=== PATIENT | female | born 1945 | race Caucasian/White ===

== ENCOUNTER 2019-01-26 17:02 | Emergency (ER) | payer MEDICARE, BC ==
[2019-01-26 17:11] VITALS: BP 153/75; PULSE 75
[2019-01-26] MEDS ORDERED: Sodium Chloride 0.9% 10 ML Syringe FLUSH PRN (17:31)
[2019-01-26] MEDS ORDERED: Sodium Chloride 0.9% 1,000 ML IV SCH (17:45)
--- NOTE | 2019-01-26 17:55 | EDM.PDOC ---
ED HPI GENERAL MEDICAL PROBLEM - General Chief Complaint: Syncope Stated Complaint: [facility] Time Seen by Provider: 01/26/19 17:11 Source of Information: Reports: Patient, EMS, Family History Limitations: Reports: No Limitations - History of Present Illness INITIAL COMMENTS - FREE TEXT/NARRATIVE: The patient presents by [facility] for syncope. She was at Thanksgiving dinner and she ate good and had 2 small glasses of wine. She helped clean off the table and then sat down on a couch. She started to not feel well and got hot. She took off her sweater and then was getting up to lay down and she passed out for about 30 seconds. She has no complaints now such as headache, fever, chills, cough, congestion, runny nose, chest pain, shortness of breath, abdominal pain, nausea, vomiting, diarrhea and dysuria. She has no cardiac history. She was recently diagnosed with hypertension in the past year and was put on a low dose medication. She says this has happened one time before when she was at a rode. It was over a hundred at the spelter though. Onset: Sudden Duration: Minutes: Severity: Moderate Improves with: Reports: None Worsens with: Reports: None Associated Symptoms: Reports: No Other Symptoms - Related Data Allergies Allergy/AdvReac Type Severity Reaction Status Date / Time No Known Allergies Allergy Verified 01/26/19 17:07 Home Meds: Home Meds B2/Vits A,C,E/Lut/Zeaxanth/Min [Icaps] 1 tab PO DAILY 01/17/14 [History] Levothyroxine 25 mcg PO DAILY 01/17/14 [History] Enalapril/Hydrochlorothiazide [Enalapril-HCTZ 10-25 MG] 1 tab PO DAILY 01/26/19 [History] Red Yeast Rice 600 mg PO DAILY 01/26/19 [History] Past Medical History HEENT History: Reports: Cataract Cardiovascular History: Reports: Hypertension Musculoskeletal History: Reports: Arthritis Oncologic (Cancer) History: Reports: Breast - Past Surgical History GI Surgical History: Reports: Appendectomy Other Female Surgeries/Procedures: mastectomy Social & Family History - Family History Family Medical History: Noncontributory - Tobacco Use Smoking Status *Q: Never Smoker ED ROS GENERAL - Review of Systems Review Of Systems: See Below Constitutional: Reports: No Symptoms HEENT: Reports: No Symptoms Respiratory: Reports: No Symptoms Cardiovascular: Reports: Syncope Endocrine: Reports: No Symptoms GI/Abdominal: Reports: No Symptoms : Reports: No Symptoms Musculoskeletal: Reports: No Symptoms Skin: Reports: No Symptoms Neurological: Reports: No Symptoms - Physical Exam Exam: See Below Exam Limited By: No Limitations General Appearance: Alert, No Apparent Distress Ears: Normal External Exam Nose: Normal Inspection Head Exam: Atraumatic, Normocephalic Neck: Normal Inspection Respiratory/Chest: No Respiratory Distress, Lungs Clear, Normal Breath Sounds Cardiovascular: Regular Rate, Rhythm, No Edema, No Murmur GI/Abdominal: Soft, Non-Tender, No Organomegaly, No Mass Neuro Exam (Abbreviated): Alert, Oriented, No Motor/Sensory Deficits Course - Vital Signs Last Recorded V/S: Last Vital Signs Temp 97.5 F 01/26/19 17:09 Pulse 75 01/26/19 17:09 Resp 16 01/26/19 17:09 BP 153/75 H 01/26/19 17:09 Pulse Ox 100 01/26/19 17:09 - Orders/Labs/Meds Orders: Active Orders 24 hr Category Date Time Status Cardiac Monitoring [RC] . DIRECTED Care 01/26/19 17:31 Active EKG Documentation Completion [RC] STAT Care 01/26/19 17:32 Active Holter Monitor 48 Hours [RC] .PRN Care 01/26/19 18:28 Ordered Peripheral IV Care [RC] . DIRECTED Care 01/26/19 17:32 Active Sodium Chloride 0.9% [Normal Saline] 1,000 ml Med 01/26/19 17:45 Active IV ASDIRECTED Sodium Chloride 0.9% [Saline Flush] Med 01/26/19 17:31 Active 10 ml FLUSH ASDIRECTED PRN Peripheral IV Insertion Adult [OM.PC] Stat Oth 01/26/19 17:31 Ordered Medication Orders Sodium Chloride (Normal Saline) 1,000 mls @ 125 mls/hr IV ASDIRECTED ARAVIND Last Admin: 01/26/19 17:39 Dose: 125 mls/hr Sodium Chloride (Saline Flush) 10 ml FLUSH ASDIRECTED PRN PRN Reason: Keep Vein Open Last Admin: 01/26/19 17:40 Dose: 10 ml Labs: Laboratory Tests 01/26/19 01/26/19 Range/Units 17:25 17:25 WBC 10.67 H (3.98-10.04) K/mm3 RBC 3.58 L (3.98-5.22) M/mm3 Hgb 11.3 D (11.2-15.7) gm/dl Hct 33.5 L (34.1-44.9) % MCV 93.6 (79.4-94.8) fl MCH 31.6 (25.6-32.2) pg MCHC 33.7 (32.2-35.5) g/dl RDW Std Deviation 42.3 (36.4-46.3) fL Plt Count 348 (182-369) K/mm3 MPV 9.4 (9.4-12.3) fl Neut % (Auto) 80.5 H (34.0-71.1) % Lymph % (Auto) 11.0 L (19.3-51.7) % [place] % (Auto) 6.3 (4.7-12.5) % Eos % (Auto) 1.3 (0.7-5.8) Baso % (Auto) 0.7 (0.1-1.2) % Neut # (Auto) 8.60 H (1.56-6.13) K/mm3 Lymph # (Auto) 1.17 L (1.18-3.74) K/mm3 [place] # (Auto) 0.67 H (0.24-0.36) K/mm3 Eos # (Auto) 0.14 (0.04-0.36) K/mm3 Baso # (Auto) 0.07 (0.01-0.08) K/mm3 Manual Slide Review Normal smear Sodium 131 L (136-145) mEq/L Potassium 3.9 (3.5-5.1) mEq/L Chloride 95 L (98-107) mEq/L Carbon Dioxide 27 (21-32) mEq/L Anion Gap 12.9 (5-15) BUN 28 H (7-18) mg/dL Creatinine 1.4 H (0.55-1.02) mg/dL Est Cr Clr Drug Dosing 32.50 mL/min Estimated GFR (MDRD) 37 (>60) mL/min BUN/Creatinine Ratio 20.0 H (14-18) Glucose 103 (83-115) mg/dL Calcium 9.8 (8.5-10.1) mg/dL Total Bilirubin 0.3 (0.2-1.0) mg/dL AST 13 L (15-37) U/L ALT 26 (14-59) U/L Alkaline Phosphatase 83 (46-116) U/L Troponin I < 0.017 (0.00-0.056) ng/mL Total Protein 7.3 (6.4-8.2) g/dl Albumin 4.0 (3.4-5.0) g/dl Globulin 3.3 gm/dL Albumin/Globulin Ratio 1.2 (1-2) Meds: Medications Generic Name Dose Route Start Last Admin Trade Name Freq PRN Reason Stop Dose Admin Sodium Chloride 1,000 mls @ 125 mls/hr 01/26/19 17:45 01/26/19 17:39 Normal Saline IV 125 mls/hr ASDIRECTED ARAVIND Administration Sodium Chloride 10 ml 01/26/19 17:31 01/26/19 17:40 Saline Flush FLUSH 10 ml ASDIRECTED PRN Administration Keep Vein Open - Re-Assessments/Exams Free Text/Narrative Re-Assessment/Exam: 01/26/19 17:56 I ordered an IV NS at 125mL/hr, labs and an EKG. 01/26/19 18:29 Her EKG shows a NSR with no acute changes. Her WBC was slightly elevated at 10.67. Her Na was low at 131. Her creatinine was elevated at 1.4. Her last creatinine was 1.2. Her troponin is negative. She still feels good. I will have her wear a holter monitor for the next 24 hours. Departure - Departure Time of Disposition: 18:35 Disposition: Home, Self-Care 01 Condition: Good Clinical Impression: Renal insufficiency Syncope Qualifiers: Syncope type: unspecified Qualified Code(s): R55 - Syncope and collapse - Discharge Information *PRESCRIPTION DRUG MONITORING PROGRAM REVIEWED*: No *COPY OF PRESCRIPTION DRUG MONITORING REPORT IN PATIENT GAMALIEL: No Referrals: Sujatha Connelly CASTER OPERATOR [Primary Care Provider] - 1 Week Forms: ED Department Discharge Additional Instructions: Drink plenty of fluids. Take your medication as prescribed. Wear the holter monitor for the next 48 hours. Please return if you are worse. Follow up with Sujatha Connelly within a week. - My Orders Last 24 Hours: My Active Orders 01/26/19 17:31 Cardiac Monitoring [RC] . DIRECTED Sodium Chloride 0.9% [Saline Flush] 10 ml FLUSH ASDIRECTED PRN Peripheral IV Insertion Adult [OM.PC] Stat 01/26/19 17:32 EKG Documentation Completion [RC] STAT Peripheral IV Care [RC] . DIRECTED 01/26/19 17:45 Sodium Chloride 0.9% [Normal Saline] 1,000 ml IV ASDIRECTED 01/26/19 18:28 Holter Monitor 48 Hours [RC] .PRN - Assessment/Plan Last 24 Hours: My Active Orders 01/26/19 17:31 Cardiac Monitoring [RC] . DIRECTED Sodium Chloride 0.9% [Saline Flush] 10 ml FLUSH ASDIRECTED PRN Peripheral IV Insertion Adult [OM.PC] Stat 01/26/19 17:32 EKG Documentation Completion [RC] STAT Peripheral IV Care [RC] . DIRECTED 01/26/19 17:45 Sodium Chloride 0.9% [Normal Saline] 1,000 ml IV ASDIRECTED 01/26/19 18:28 Holter Monitor 48 Hours [RC] .PRN
== END 2019-01-26 19:01 | disposition home or self-care (01) ==
LOC: SUPCPDRO 17:02 → JD.ED 17:02
DX: R55 Syncope and collapse (principal); N28.9 Disorder of kidney and ureter, unspecified; I10 Essential (primary) hypertension; Z79.899 Other long term (current) drug therapy
CPT/HCPCS: 36415; 80053; 84484; 85025; 93005; 93225; 93226; 96360; 99284; J7040; 93010; 99283; J7030

== ENCOUNTER 2019-12-07 08:01 | Day surgery (SDC) | payer MEDICARE, BC ==
[~2019-12-07 08:01] MED LIST: Lactated Ringers 1,000 ML IV SCH; Lidocaine 1%/Sod Bicarbonate in NS 8.4% 1 ML Syringe IDERM PRN; Sodium Chloride 0.9% 10 ML Syringe FLUSH PRN
--- NOTE | 2019-12-07 08:28 | PCM.PREANE ---
Preanesthetic Assessment - Procedure Proposed Procedure: colonoscopy - Anesthesia/Transfusion/Family Hx Anesthesia History: Prior Anesthesia Without Reaction Family History of Anesthesia Reaction: No Transfusion History: No Prior Transfusion(s) - Review of Systems General: No Symptoms Pulmonary: No Symptoms Cardiovascular: Dyspnea on Exertion Gastrointestinal: No Symptoms Neurological: Numbness (left side masectomy) Other: Reports: Thyroid Problems (hypothyroid) - Physical Assessment NPO Status Date: 12/06/19 NPO Status Time: 00:00 Height: 1.68 m Weight: 33.475 kg ASA Class: 2 Mental Status: Alert & Oriented x3 Airway Class: Mallampati = 1 Dentition: Reports: Dentures Thyro-Mental Finger Breadths: 3 Mouth Opening Finger Breadths: 3 ROM/Head Extension: Full Lungs: Clear to Auscultation, Normal Respiratory Effort Cardiovascular: Regular Rate, Regular Rhythm - Imaging/EKG Impressions: EKG sr rate 75 - Allergies Allergies/Adverse Reactions: Allergies Allergy/AdvReac Type Severity Reaction Status Date / Time No Known Allergies Allergy Verified 12/06/19 13:37 - Blood Blood Available: No Product(s) Available: None - Anesthesia Plan Pre-Op Medication Ordered: None - Acknowledgements Anesthesia Type Planned: MAC Pt an Appropriate Candidate for the Planned Anesthesia: Yes Alternatives and Risks of Anesthesia Discussed w Pt/Guardian: Yes Pt/Guardian Understands and Agrees with Anesthesia Plan: Yes PreAnesthesia Questionnaire HEENT History: Reports: Cataract, Impaired Vision, Other (See Below) Other HEENT History: HAS GLASSES AND DENTURES Cardiovascular History: Reports: High Cholesterol, Hypertension Respiratory History: Reports: None Gastrointestinal History: Reports: Hemorrhoids Genitourinary History: Reports: None SPEECH PATHOLOGIST ASSISTANT History: Reports: None Musculoskeletal History: Reports: Arthritis Neurological History: Reports: None Psychiatric History: Reports: None Endocrine/Metabolic History: Reports: Hypothyroidism, Osteopenia Hematologic History: Reports: Other (See Below) Other Hematologic History: hypercalcemia Immunologic History: Reports: None Oncologic (Cancer) History: Reports: Breast Dermatologic History: Reports: Other (See Below) Other Dermatologic History: contact dermatitis, skin neoplasm, verrucous papule - Past Surgical History Head Surgeries/Procedures: Reports: None HEENT Surgical History: Reports: Cataract Surgery Cardiovascular Surgical History: Reports: None Respiratory Surgical History: Reports: None GI Surgical History: Reports: Appendectomy, Colonoscopy Female Surgical History: Reports: D&C Other Female Surgeries/Procedures: mastectomy Endocrine Surgical History: Reports: Thyroidectomy Neurological Surgical History: Reports: None Oncologic Surgical History: Reports: Mastectomy Dermatological Surgical History: Reports: None - SUBSTANCE USE Smoking Status *Q: Never Smoker Tobacco Use Within Last Twelve Months: No Second Hand Smoke Exposure: No Days Per Week of Alcohol Use: 3 Number of Drinks Per Day: 1 Total Drinks Per Week: 3 Recreational Drug Use History: No - HOME MEDS Home Medications: Home Meds Aspirin 81 mg PO DAILY 12/06/19 [History] Enalapril/Hydrochlorothiazide [Enalapril-HCTZ 10-25 MG] 1 tab PO DAILY 12/06/19 [History] Levothyroxine [Synthroid] 50 mcg PO DAILY 12/06/19 [History] Multivitamin [Daily James] 1 tab PO DAILY 12/06/19 [History] Rosuvastatin [Crestor] 10 mg PO DAILY 12/06/19 [History] - CURRENT (IN HOUSE) MEDS Current Meds: Current Medications Lactated Ringer's (Ringers, Lactated) 1,000 mls @ 125 mls/hr IV ASDIRECTED ARAVIND Stop: 12/07/19 23:00 Lidocaine/Sodium Bicarbonate (Buffered Lidocaine 1% In Ns 8.4%) 0.25 ml IDERM ONETIME PRN PRN Reason: Prior to IV Start Stop: 12/07/19 18:00 Sodium Chloride (Saline Flush) 10 ml FLUSH ASDIRECTED PRN PRN Reason: Keep Vein Open Stop: 12/07/19 18:00
[2019-12-07] MEDS ORDERED: Propofol 200 MG/20 ML SDV ONE ×2 (08:33→09:47)
[2019-12-07] MEDS ORDERED: Lidocaine 1% 4 ML ONE (09:34)
--- NOTE | 2019-12-07 10:12 | PCM.PRNOTE ---
- Free Text/Narrative Note: Date: 12/07/2019 Procedure: diagnostic colonoscopy Indication: positive cologuard test Endoscopist: Christian Johnson MD Findings: Cecum reached with colonoscope. Prep was very good. One small polyp identified in distal rectum. Sigmoid diverticulosis. Internal hemorrhoids. Detailed Report: The patient was taken to the endoscopy suite and placed in left lateral decubitus position. Time out was performed and monitored anesthesia care was initiated. Visual inspection of the anus revealed no abnormality. Hypertrophied anal papilla was palpated on digital rectal exam. The lubricated colonoscope was then inserted and advanced all the way to the cecum. The colon was redundant with extensive sigmoid diverticulosis. The ileocecal valve and appendiceal orifice were visualized. The prep was very good. On slow withdrawal of the scope, mucosal surfaces were carefully inspected. One subcentimeter polyp was identified in the rectum and removed with cold forceps. On retroflexion within the rectum internal hemorrhoids were noted. Air was suctioned prior to removal of the scope. The patient tolerated the procedure well.
--- NOTE | 2019-12-07 10:13 | PCM48HPAN ---
Post Anesthesia Note - EVALUATION WITHIN 48HRS OF ANESTHETIC Vital Signs in Normal Range: Yes Patient Participated in Evaluation: Yes Respiratory Function Stable: Yes Airway Patent: Yes Cardiovascular Function Stable: Yes Hydration Status Stable: Yes Pain Control Satisfactory: Yes Nausea and Vomiting Control Satisfactory: Yes Mental Status Recovered: Yes Vital Signs: Last Vital Signs Temp 36.5 C 12/07/19 08:45 Pulse 86 12/07/19 08:45 Resp 16 12/07/19 08:45 BP 154/87 H 12/07/19 08:45 Pulse Ox 95 12/07/19 08:45
[2019-12-07 10:36] VITALS: BP 149/80; PULSE 73
== END 2019-12-07 10:45 | disposition home or self-care (01) ==
LOC: JD.SDS 08:01
PROVIDERS: ATTEND Surgery
DX: D12.8 Benign neoplasm of rectum (principal); K57.30 Diverticulosis of large intestine without perforation or abscess without bleeding; K64.8 Other hemorrhoids; E78.00 Pure hypercholesterolemia, unspecified; I10 Essential (primary) hypertension; E83.52 Hypercalcemia; E03.9 Hypothyroidism, unspecified; F17.210 Nicotine dependence, cigarettes, uncomplicated; Z79.82 Long term (current) use of aspirin; Z79.899 Other long term (current) drug therapy; Z98.890 Other specified postprocedural states; Z01.812 Encounter for preprocedural laboratory examination; Z20.828 Contact with and (suspected) exposure to other viral communicable diseases
CPT/HCPCS: 45380; J2001; J2704; J7120; 00811